=== PATIENT | female | born 1935 | race Caucasian/White ===

== ENCOUNTER 2017-12-03 11:43 | Inpatient (IN) ==
--- NOTE | 2017-12-03 15:59 | Internal Med History&Physical ---
Date of Encounter: 12/03/17 Time of Encounter: 15:57 Assessment and Plan (1) Hip fracture Current visit: No Status: Acute Consult PT\OT to eval and treat. Follow up with ortho as scheduled continue current pain medication. Qualifiers: Encounter type: initial encounter Fracture type: closed Laterality: right Qualified Code(s): S72.001A - Fracture of unspecified part of neck of right femur, initial encounter for closed fracture (2) HTN (hypertension) Current visit: No Status: Chronic Controlled with current medication. Monitor blood pressure. Qualifiers: Hypertension type: essential hypertension Qualified Code(s): I10 - Essential (primary) hypertension (3) Virvv-il-xpwkbrj kidney injury Current visit: No Status: Resolved Monitor labs. Avoid nephrotoxic agents. Qualifiers: Acute renal failure type: unspecified Chronic kidney disease stage: unspecified stage Qualified Code(s): N17.9 - Acute kidney failure, unspecified ; N18.9 - Chronic kidney disease, unspecified Internal Medicine - H&P: HPI Admitted From: Intrahospital Transfer Plans for Post Hospital Care: Home History of present illness: Ms. Long is a 82 year old female admitted to inpatient rehab status post right hip fracture from [facility]. Past medical history includes hypertension, IBS, malignancy, Gerd, hyperlipidemia, CKD. States pain is controlled with current pain medication. Denies fever, chills, nausea, vomiting or diarrhea. States bowels moved today. Having to take Imodium often on due to IBS. Past Med Surg Social Fam HX - Past Medical History Medical history: cancer, GERD, hypertension, renal disease Psychiatric history: no psych history - Past Surgical History Surgical History: cholecystectomy, hysterectomy - Social History Smoking Status: Never smoker Alcohol use: none Drug use: none - Family History Mother Living Status: Hx Family Cancer: Yes (lung ca) Hx Family Endocrine Disorder: Yes (dm) Father Living Status: Hx Family Cardiac Disorders: Yes Internal Medicine - H&P: Meds Amlodipine Besylate 10 mg PO DAILY 11/29/17 [History] Aspirin [Lo-Dose Aspirin EC] 81 mg PO DAILY 11/29/17 [History] Ergocalciferol (VITAMIN D2) [Vitamin D2] 50,000 unit PO QWEEK 11/29/17 [History] Escitalopram [Lexapro] 10 mg PO HS 11/29/17 [History] Esomeprazole Magnesium [Nexium] 40 mg PO DAILY 11/29/17 [History] Fenofibrate Nanocrystallized [Triglide] 160 mg PO DAILY 11/29/17 [History] Metoprolol Succinate [Toprol Xl] 50 mg PO BID 11/29/17 [History] Valsartan 160 mg PO BID 11/29/17 [History] Loperamide [Imodium] 2 mg PO DAILY 11/30/17 [History] Aspirin Enteric Coated [Aspirin EC] 325 mg PO BID 20 Days #20 tablet. [Rx] HYDROcodone/Acet 10/325 mg [[place] 10-325 mg] 1 each PO Q4H PRN 5 Days #20 tablet 12/03/17 [Rx] 3 Allergy/AdvReac Type Severity Reaction Status Date / Time Oxycodone [From Percocet] Allergy Hallucinati Verified 11/29/17 21:04 ng All Systems PM: A 10-system review of systems was performed and is negative for pertinent findings except as documented above in the HPI. - Constitutional Constitutional: no chills, no fever(s), no night sweats - EENT Eyes: no change in vision, no discharge, no pain, no photophobia Ears: no ear discharge, no ear pain, no tinnitus Nose, mouth and throat: no dysphagia, no nasal discharge, no neck pain, no sore throat - Cardiovascular Cardiovascular ROS IM: no chest pain, no diaphoresis, no dyspnea, no lightheadedness, no palpitations, no syncope - Respiratory Respiratory: no cough, no dyspnea, no wheezing, no excessive phlegm production - Gastrointestinal Gastrointestinal: no abdominal pain, no diarrhea, no hematemesis, no hematochezia, no melena, no nausea, no vomiting - Genitourinary Genitourinary: no change in urinary stream, no dysuria, no flank pain, no hematuria - Musculoskeletal Musculoskeletal ROS IM: no numbness, no tingling - Integumentary Integumentary IM: no rash, no unusual bruising - Neurological Neurological ROS: no confusion, no convulsions, no focal weakness, no numbness, no tingling, no tremor(s) - Hematologic/Lymphatic Hematologic/Lymphatic: no easy bruising - Head Head exam: Present: atraumatic, normocephalic - Eye Eye exam: Present: PERRL, conjuntiva pink, sclera anicteric Pupils: Present: PERRL - Neck Neck exam general surgery: Present: supple, trachea midline. Absent: lymphadenopathy - Respiratory Respiratory exam: Present: CTAB. Absent: accessory muscle use, rales, rhonchi, wheezes - Cardiovascular Cardiovascular exam: Present: RRR, +S1, +S2. Absent: diastolic murmur, gallop, rubs, systolic murmur - GI/Abdominal GI/Abdominal exam: Present: normal bowel sounds, soft, no peritoneal signs. Absent: distended, tenderness - Extremities Exam Extremities exam: Present: warm, radial pulses palpable and symmetrical. Absent : calf tenderness, cyanotic, pedal edema - Incison Comments: Right hip incision dressing dry and intact. Small amount of edema surrounding surgical site. Slight ecchymosis - Neurological Exam Neurological exam: Present: CN II-XII intact, oriented X3, no focal deficits. Absent: pronater drift, facial droop, speech deficit - Skin Skin exam: Present: dry, intact
[2017-12-03] MEDS: *HR* HYDROcodone/Acet 10/325 mg TABLET PO PRN (20:00)
[2017-12-03] MEDS: Metoprolol XL (24 HR) Succ 50 MG TAB.ER.24H PO SCH (20:01)
[2017-12-03] MEDS: Valsartan 160 MG TABLET PO SCH (20:01)
[2017-12-04 05:45] LABS: Basophils # 0.1 K/mcL (0.0-0.2); Basophils % 0.5 %; Eosinophils # 0.8 K/mcL (0.0-0.6); Eosinophils % 7.5 %; Hematocrit 26.2 % (35.3-44.9); Hemoglobin 8.4 g/dL (11.5-15.4); Immature Granulocytes % 0.6 % (0-4); Lymphocytes % 54.4 %; Mean Corpuscular HGB Conc 32.1 g/dL (31.6-35.5); Mean Corpuscular Hemoglobin 28.4 pg (28.0-33.3); Mean Corpuscular Volume 88.5 fL (83.0-100.0); Mean Platelet Volume 9.2 fL (9.4-12.4); Monocytes # 0.7 K/mcL (0.0-1.3); Neutrophils # 3.4 K/mcL (1.6-8.9); Platelet Count 196 K/mcL (140-400); Red Blood Count 2.96 M/mcL (3.82-4.97); Red Cell Distribution Width 13.2 % (11.5-14.5)
[2017-12-04 05:58] LABS: BUN/Creatinine Ratio 38 (6-26); Blood Urea Nitrogen 38 mg/dL (8-23); Calcium 9.1 mg/dL (8.6-10.3); Carbon Dioxide 30 mEq/L (23-29); Chloride 105 mEq/L (98-107); Glucose 116 mg/dL (70-105); Osmolality,Calculated 302 (280-300); Potassium 4.6 mEq/L (3.5-5.1); Sodium 141 mEq/L (136-145); eGFR For African Americans > 60 (> 60); eGFR For Non-African Americans 53 (> 60)
[2017-12-04] MEDS: Fenofibrate 54 MG TABLET PO SCH (07:46)
[2017-12-04] MEDS: Aspirin Enteric Coated 81 MG Tablet PO SCH (07:46)
[2017-12-04] MEDS: Metoprolol XL (24 HR) Succ 50 MG TAB.ER.24H PO SCH ×2 (07:46→20:34)
[2017-12-04] MEDS: Valsartan 160 MG TABLET PO SCH ×2 (07:46→20:34)
[2017-12-04] MEDS: amLODIPine 5 MG TABLET PO SCH (07:46)
[2017-12-04] MEDS: *HR* HYDROcodone/Acet 10/325 mg TABLET PO PRN ×2 (07:46→20:35)
--- NOTE | 2017-12-04 12:02 | Internal Med Progress Note ---
Date of Encounter: 12/04/17 Time of Encounter: 12:00 - Assessment and plan (1) Hip fracture Current Visit: Yes Status: Acute Assessment and plan: PT\OT to eval and treat. Continue current pain medications as they are effective for controlling pain. Follow up with ortho as scheduled. Qualifiers: Encounter type: sequela Fracture type: closed Laterality: right Qualified Code(s): S72.001S - Fracture of unspecified part of neck of right femur, sequela (2) HTN (hypertension) Current Visit: Yes Status: Chronic Assessment and plan: Controlled with current medication. Will monitor blood pressure Qualifiers: Hypertension type: essential hypertension Qualified Code(s): I10 - Essential (primary) hypertension (3) Jtrsn-rh-mvtslsp kidney injury Current Visit: Yes Status: Resolved Assessment and plan: Creatinine 1.0. Improved. Will monitor labs. Avoid nephrotoxic agents. Qualifiers: Acute renal failure type: unspecified Chronic kidney disease stage: unspecified stage Qualified Code(s): N17.9 - Acute kidney failure, unspecified ; N18.9 - Chronic kidney disease, unspecified - Time Spent With Patient less than 15 minutes - Subjective Interval history: Patient sitting up in chair. States pain is controlled with current medication. Denies fever, chills, nausea vomiting or diarrhea. States last bowel movement was today. Maintaining appetite and hydration. - Constitutional Vitals: Temp Pulse Resp BP Pulse Ox 98.1 F 57 16 108/70 93 12/04/17 11:00 12/04/17 11:00 12/04/17 11:00 12/04/17 11:00 12/04/17 11:00 General appearance: Present: cooperative, A&O X 3, pleasant, no acute distress, answers questions appropriately - Head Head exam: Present: atraumatic, normocephalic - Eye Eye exam: Present: PERRL, conjuntiva pink, sclera anicteric Pupils: Present: PERRL - Neck Neck exam general surgery: Present: supple, trachea midline. Absent: lymphadenopathy - Respiratory Respiratory exam: Present: CTAB. Absent: accessory muscle use, rales, rhonchi, wheezes - Cardiovascular Cardiovascular exam: Present: RRR, +S1, +S2. Absent: diastolic murmur, gallop, rubs, systolic murmur - GI/Abdominal GI/Abdominal exam: Present: normal bowel sounds, soft, no peritoneal signs. Absent: distended, tenderness - Extremities Exam Extremities exam: Present: warm, radial pulses palpable and symmetrical. Absent : calf tenderness, cyanotic, pedal edema - Incison Comments: Right hip incision dressing dry and intact. No drainage. Slight amount of edema surrounding incision. - Neurological Exam Neurological exam: Present: CN II-XII intact, oriented X3, no focal deficits. Absent: pronater drift, facial droop, speech deficit - Skin Skin exam: Present: dry, intact Internal Medicine: Result - Labs CBC & Chem 7: 12/04/17 05:35 12/04/17 05:35 Labs: Short CBC 12/04/17 Range/Units 05:35 WBC 11.0 (4.3-11.1) K/mcL Hgb 8.4 L (11.5-15.4) g/dL Hct 26.2 L (35.3-44.9) % Plt Count 196 (140-400) K/mcL Neutrophils # 3.4 (1.6-8.9) K/mcL BMP 12/04/17 05:35 Sodium 141 Potassium 4.6 Chloride 105 Carbon Dioxide 30 H BUN 38 H Creatinine 1.00 Glucose 116 H Calcium 9.1 Consult Discharge Plan - Plan Referrals: Guanako Lara MD [Primary Care Provider] -
[2017-12-04] MEDS: *HR* Heparin 5,000 UNIT/ML VIAL SQ SCH (21:53)
[2017-12-05] MEDS: *HR* HYDROcodone/Acet 10/325 mg TABLET PO PRN ×4 (05:12→20:55)
[2017-12-05] MEDS: *HR* Heparin 5,000 UNIT/ML VIAL SQ SCH ×2 (05:13→18:18)
[2017-12-05] MEDS: Fenofibrate 54 MG TABLET PO SCH (08:51)
[2017-12-05] MEDS: Valsartan 160 MG TABLET PO SCH ×2 (08:51→20:51)
[2017-12-05] MEDS: Aspirin Enteric Coated 81 MG Tablet PO SCH (08:51)
[2017-12-05] MEDS: amLODIPine 5 MG TABLET PO SCH (08:51)
[2017-12-05] MEDS: Metoprolol XL (24 HR) Succ 50 MG TAB.ER.24H PO SCH ×2 (08:51→20:51)
--- NOTE | 2017-12-05 11:36 | Internal Med Progress Note ---
Date of Encounter: 12/05/17 Time of Encounter: 11:33 - Assessment and plan (1) Hip fracture Current Visit: Yes Status: Acute Assessment and plan: PT\OT to eval and treat. Continue current pain medications as they are effective for controlling pain. Follow up with ortho as scheduled. Qualifiers: Encounter type: sequela Fracture type: closed Laterality: right Qualified Code(s): S72.001S - Fracture of unspecified part of neck of right femur, sequela (2) HTN (hypertension) Current Visit: Yes Status: Chronic Assessment and plan: Controlled with current medication. Will monitor blood pressure Qualifiers: Hypertension type: essential hypertension Qualified Code(s): I10 - Essential (primary) hypertension (3) Entoc-lm-ramclhm kidney injury Current Visit: Yes Status: Resolved Assessment and plan: Creatinine 1.0. Improved. Will monitor labs. Avoid nephrotoxic agents. Qualifiers: Acute renal failure type: unspecified Chronic kidney disease stage: unspecified stage Qualified Code(s): N17.9 - Acute kidney failure, unspecified ; N18.9 - Chronic kidney disease, unspecified - Time Spent With Patient less than 15 minutes - Subjective Interval history: Patient sitting up in chair. states increased right hip pain with PT today, has not been asking for pain meds. reminded patient to request prn pain meds prior to therapy. Denies fever, chills, nausea vomiting or diarrhea. States last bowel movement was today. Maintaining appetite and hydration. - Constitutional Vitals: Temp Pulse Resp BP Pulse Ox 97.9 F 60 16 123/84 93 12/05/17 07:00 12/05/17 07:00 12/05/17 07:00 12/05/17 07:00 12/05/17 07:00 General appearance: Present: cooperative, A&O X 3, pleasant, no acute distress, answers questions appropriately - Head Head exam: Present: atraumatic, normocephalic - Eye Eye exam: Present: PERRL, conjuntiva pink, sclera anicteric Pupils: Present: PERRL - Neck Neck exam general surgery: Present: supple, trachea midline. Absent: lymphadenopathy - Respiratory Respiratory exam: Present: CTAB. Absent: accessory muscle use, rales, rhonchi, wheezes - Cardiovascular Cardiovascular exam: Present: RRR, +S1, +S2. Absent: diastolic murmur, gallop, rubs, systolic murmur - GI/Abdominal GI/Abdominal exam: Present: normal bowel sounds, soft, no peritoneal signs. Absent: distended, tenderness - Extremities Exam Extremities exam: Present: warm, radial pulses palpable and symmetrical. Absent : calf tenderness, cyanotic, pedal edema - Incison Comments: right hip incision drsg dry and intact. no drainage or signs of infection. - Neurological Exam Neurological exam: Present: CN II-XII intact, oriented X3, no focal deficits. Absent: pronater drift, facial droop, speech deficit - Skin Skin exam: Present: dry, intact Internal Medicine: Result - Labs CBC & Chem 7: 12/04/17 05:35 12/04/17 05:35 Consult Discharge Plan - Plan Referrals: Guanako Lara MD [Primary Care Provider] -
[2017-12-06 05:27] LABS: Basophils # 0.1 K/mcL (0.0-0.2); Basophils % 0.6 %; Eosinophils # 0.9 K/mcL (0.0-0.6); Eosinophils % 8.6 %; Hematocrit 24.4 % (35.3-44.9); Hemoglobin 7.9 g/dL (11.5-15.4); Immature Granulocytes % 0.7 % (0-4); Lymphocytes # 5.5 K/mcL (0.6-4.6); Lymphocytes % 54.2 %; Mean Corpuscular HGB Conc 32.4 g/dL (31.6-35.5); Mean Corpuscular Hemoglobin 28.8 pg (28.0-33.3); Mean Corpuscular Volume 89.1 fL (83.0-100.0); Monocytes # 0.6 K/mcL (0.0-1.3); Monocytes % 6.2 %; Platelet Count 216 K/mcL (140-400); Red Blood Count 2.74 M/mcL (3.82-4.97); Red Cell Distribution Width 13.5 % (11.5-14.5); Segmented Neutrophils % 29.7 %
[2017-12-06 05:44] LABS: Calcium 9.1 mg/dL (8.6-10.3); Potassium 4.2 mEq/L (3.5-5.1)
[2017-12-06] MEDS: *HR* Heparin 5,000 UNIT/ML VIAL SQ SCH ×2 (06:08→17:27)
[2017-12-06] MEDS: *HR* HYDROcodone/Acet 10/325 mg TABLET PO PRN ×4 (06:09→21:25)
[2017-12-06] MEDS: Valsartan 160 MG TABLET PO SCH ×2 (08:21→21:25)
[2017-12-06] MEDS: Metoprolol XL (24 HR) Succ 50 MG TAB.ER.24H PO SCH ×2 (08:21→21:25)
[2017-12-06] MEDS: Aspirin Enteric Coated 81 MG Tablet PO SCH (08:21)
[2017-12-06] MEDS: Fenofibrate 54 MG TABLET PO SCH (08:21)
[2017-12-06] MEDS: amLODIPine 5 MG TABLET PO SCH (08:21)
--- NOTE | 2017-12-06 10:48 | Internal Med Progress Note ---
Date of Encounter: 12/06/17 Time of Encounter: 10:45 - Assessment and plan (1) Hip fracture Current Visit: Yes Status: Acute Assessment and plan: No acute issues. Patient continues to progress well with physical therapy. Surgical incision appears healthy, but noted moderate amount of ecchymosis and edema noted. Patient's hemoglobin today has dropped from 8.4-7.9, but patient remains asymptomatic with vital signs stable and no complaints of dizziness, palpitations or dyspnea. We will continue with current plan of care. We will recheck hemoglobin in the morning Qualifiers: Encounter type: sequela Fracture type: closed Laterality: right Qualified Code(s): S72.001S - Fracture of unspecified part of neck of right femur, sequela (2) HTN (hypertension) Current Visit: Yes Status: Chronic Assessment and plan: Vital signs stable. We will continue with current medications. Qualifiers: Hypertension type: essential hypertension Qualified Code(s): I10 - Essential (primary) hypertension (3) Igrqp-kj-utlfnbh kidney injury Current Visit: Yes Status: Chronic Assessment and plan: No acute issues. Patient's creatinine this morning is 1.17. We will continue with current medications and continue to monitor labs. Qualifiers: Acute renal failure type: unspecified Chronic kidney disease stage: unspecified stage Qualified Code(s): N17.9 - Acute kidney failure, unspecified ; N18.9 - Chronic kidney disease, unspecified - Time Spent With Patient less than 15 minutes - Subjective Interval history: Patient appears relaxed and currently denies any discomforts. Patient states that her current pain medications have been effective. Patient states she believes that physical therapy has been progressing well. Patient also denies any palpitations or dizziness. Today's hemoglobin has dropped to 7.9, with patient appearing asymptomatic. - Constitutional Vitals: Temp Pulse Resp BP Pulse Ox 97.9 F 60 16 126/68 95 12/06/17 07:45 12/06/17 07:45 12/06/17 07:45 12/06/17 07:45 12/06/17 07:45 General appearance: Present: cooperative, A&O X 3, pleasant, no acute distress, answers questions appropriately - Head Head exam: Present: atraumatic, normocephalic - Eye Eye exam: Present: PERRL, conjuntiva pink, sclera anicteric Pupils: Present: PERRL - Neck Neck exam general surgery: Present: supple, trachea midline. Absent: lymphadenopathy - Respiratory Respiratory exam: Present: CTAB. Absent: accessory muscle use, rales, rhonchi, wheezes - Cardiovascular Cardiovascular exam: Present: RRR, +S1, +S2. Absent: diastolic murmur, gallop, rubs, systolic murmur - GI/Abdominal GI/Abdominal exam: Present: normal bowel sounds, soft, no peritoneal signs. Absent: distended, tenderness - Extremities Exam Extremities exam: Present: warm, radial pulses palpable and symmetrical. Absent : calf tenderness, cyanotic, pedal edema Additional comments: Right hip surgical incision appears dry and intact with initial surgical dressing in place. Iron amount of ecchymosis surrounding surgical area and right hip with moderate amount of edema. - Neurological Exam Neurological exam: Present: CN II-XII intact, oriented X3, no focal deficits. Absent: pronater drift, facial droop, speech deficit - Skin Skin exam: Present: dry, intact Internal Medicine: Result - Labs CBC & Chem 7: 12/06/17 05:00 12/06/17 05:00 Labs: Short CBC 12/06/17 Range/Units 05:00 WBC 10.1 (4.3-11.1) K/mcL Hgb 7.9 L (11.5-15.4) g/dL Hct 24.4 L (35.3-44.9) % Plt Count 216 (140-400) K/mcL Neutrophils # 3.0 (1.6-8.9) K/mcL BMP 12/06/17 05:00 Sodium 136 Potassium 4.2 Chloride 103 Carbon Dioxide 28 BUN 44 H Creatinine 1.17 Glucose 110 H Calcium 9.1 Consult Discharge Plan - Plan Referrals: Guanako Lara MD [Primary Care Provider] -
[2017-12-07] MEDS: *HR* Heparin 5,000 UNIT/ML VIAL SQ SCH ×2 (06:24→16:29)
[2017-12-07] MEDS: *HR* HYDROcodone/Acet 10/325 mg TABLET PO PRN ×4 (06:25→20:42)
[2017-12-07 07:40] LABS: Basophils # 0.1 K/mcL (0.0-0.2); Basophils % 0.6 %; Eosinophils # 0.9 K/mcL (0.0-0.6); Eosinophils % 8.4 %; Hematocrit 24.8 % (35.3-44.9); Hemoglobin 7.9 g/dL (11.5-15.4); Immature Granulocytes % 0.7 % (0-4); Lymphocytes # 6.1 K/mcL (0.6-4.6); Lymphocytes % 57.4 %; Mean Corpuscular HGB Conc 31.9 g/dL (31.6-35.5); Mean Corpuscular Hemoglobin 28.7 pg (28.0-33.3); Mean Corpuscular Volume 90.2 fL (83.0-100.0); Mean Platelet Volume 9.2 fL (9.4-12.4); Monocytes # 0.8 K/mcL (0.0-1.3); Monocytes % 7.9 %; Neutrophils # 2.7 K/mcL (1.6-8.9); Nucleated Red Blood Cells 0.2 /100 WBC (0); Platelet Count 239 K/mcL (140-400); Red Blood Count 2.75 M/mcL (3.82-4.97); Red Cell Distribution Width 13.7 % (11.5-14.5)
[2017-12-07] MEDS: Fenofibrate 54 MG TABLET PO SCH (08:38)
[2017-12-07] MEDS: Aspirin Enteric Coated 81 MG Tablet PO SCH (08:39)
[2017-12-07] MEDS: amLODIPine 5 MG TABLET PO SCH (08:39)
[2017-12-07] MEDS: Valsartan 160 MG TABLET PO SCH ×2 (08:39→20:41)
[2017-12-07] MEDS: Metoprolol XL (24 HR) Succ 50 MG TAB.ER.24H PO SCH ×2 (08:39→20:41)
--- NOTE | 2017-12-07 10:28 | Internal Med Progress Note ---
Date of Encounter: 12/07/17 Time of Encounter: 10:26 - Assessment and plan (1) Hip fracture Current Visit: Yes Status: Acute Assessment and plan: No acute issues. Patient continues to progress well with physical therapy. Surgical incision appears healthy, but noted moderate amount of ecchymosis and edema noted. Patient's hemoglobin today has dropped from 8.4-7.9. Today's atient remains asymptomatic with vital signs stable and no complaints of dizziness, palpitations or dyspnea. We will continue with current plan of care. We will recheck hemoglobin in two days. Qualifiers: Encounter type: sequela Fracture type: closed Laterality: right Qualified Code(s): S72.001S - Fracture of unspecified part of neck of right femur, sequela (2) HTN (hypertension) Current Visit: Yes Status: Chronic Assessment and plan: Vital signs stable. We will continue with current medications. Qualifiers: Hypertension type: essential hypertension Qualified Code(s): I10 - Essential (primary) hypertension (3) Gjaff-nj-xbytudy kidney injury Current Visit: Yes Status: Chronic Assessment and plan: No acute issues. Patient's creatinine this morning is 1.17. We will continue with current medications and continue to monitor labs. Qualifiers: Acute renal failure type: unspecified Chronic kidney disease stage: unspecified stage Qualified Code(s): N17.9 - Acute kidney failure, unspecified ; N18.9 - Chronic kidney disease, unspecified - Time Spent With Patient less than 15 minutes - Subjective Interval history: Patient appears relaxed and currently denies any discomforts. Patient states that her current pain medications have been effective. Patient states she believes that physical therapy has been progressing well. Patient also denies any palpitations or dizziness. Today's hemoglobin has remained stable at 7.9, with patient appearing asymptomatic. - Constitutional Vitals: Temp Pulse Resp BP Pulse Ox 98.6 F 55 18 106/69 91 12/07/17 07:04 12/07/17 07:04 12/07/17 07:04 12/07/17 07:04 12/07/17 07:04 General appearance: Present: cooperative, A&O X 3, pleasant, no acute distress, answers questions appropriately - Head Head exam: Present: atraumatic, normocephalic - Eye Eye exam: Present: PERRL, conjuntiva pink, sclera anicteric Pupils: Present: PERRL - Neck Neck exam general surgery: Present: supple, trachea midline. Absent: lymphadenopathy - Respiratory Respiratory exam: Present: CTAB. Absent: accessory muscle use, rales, rhonchi, wheezes - Cardiovascular Cardiovascular exam: Present: RRR, +S1, +S2. Absent: diastolic murmur, gallop, rubs, systolic murmur - GI/Abdominal GI/Abdominal exam: Present: normal bowel sounds, soft, no peritoneal signs. Absent: distended, tenderness - Extremities Exam Extremities exam: Present: warm, radial pulses palpable and symmetrical. Absent : calf tenderness, cyanotic, pedal edema Additional comments: Right hip surgical incision with surgical dressing dry and intact. Moderate amount of ecchymosis noted around the site with moderate edema to the hip. - Neurological Exam Neurological exam: Present: CN II-XII intact, oriented X3, no focal deficits. Absent: pronater drift, facial droop, speech deficit - Skin Skin exam: Present: dry, intact Internal Medicine: Result - Labs CBC & Chem 7: 12/07/17 06:05 12/06/17 05:00 Labs: Short CBC 12/07/17 Range/Units 06:05 WBC 10.7 (4.3-11.1) K/mcL Hgb 7.9 L (11.5-15.4) g/dL Hct 24.8 L (35.3-44.9) % Plt Count 239 (140-400) K/mcL Neutrophils # 2.7 (1.6-8.9) K/mcL Consult Discharge Plan - Plan Referrals: Guanako Lara MD [Primary Care Provider] -
[2017-12-08] MEDS: *HR* Heparin 5,000 UNIT/ML VIAL SQ SCH ×2 (05:34→16:32)
[2017-12-08] MEDS: *HR* HYDROcodone/Acet 10/325 mg TABLET PO PRN ×4 (05:35→20:59)
[2017-12-08] MEDS: Metoprolol XL (24 HR) Succ 50 MG TAB.ER.24H PO SCH ×2 (08:24→20:59)
[2017-12-08] MEDS: amLODIPine 5 MG TABLET PO SCH (08:24)
[2017-12-08] MEDS: Fenofibrate 54 MG TABLET PO SCH (08:24)
[2017-12-08] MEDS: Aspirin Enteric Coated 81 MG Tablet PO SCH (08:24)
[2017-12-08] MEDS: Valsartan 160 MG TABLET PO SCH ×2 (08:24→20:59)
--- NOTE | 2017-12-08 09:36 | Internal Med Progress Note ---
Date of Encounter: 12/08/17 Time of Encounter: 09:34 - Assessment and plan (1) Anemia Current Visit: Yes Status: Acute Assessment and plan: anemia , most likely iron def . supplement Iron if already not on it labs as needed Qualifiers: Anemia type: unspecified type Qualified Code(s): D64.9 - Anemia, unspecified (2) Hip fracture Current Visit: Yes Status: Acute Assessment and plan: stable getting rehab some pain but controlled on present meds Qualifiers: Encounter type: sequela Fracture type: closed Laterality: right Qualified Code(s): S72.001S - Fracture of unspecified part of neck of right femur, sequela (3) HTN (hypertension) Current Visit: Yes Status: Chronic Assessment and plan: stable systolic is some what on the lower end could be more harmful if she falls will decrease her Norvasc to 5 mg and followup Qualifiers: Hypertension type: essential hypertension Qualified Code(s): I10 - Essential (primary) hypertension (4) Uyohr-ov-kwxffjp kidney injury Current Visit: Yes Status: Chronic Assessment and plan: improving and resolving continue present treatment increase fluid intake Qualifiers: Acute renal failure type: unspecified Chronic kidney disease stage: unspecified stage Qualified Code(s): N17.9 - Acute kidney failure, unspecified ; N18.9 - Chronic kidney disease, unspecified - Subjective Interval history: Seen as followup cross coverage no acute issues except for pain on the surgical site She is actively participating in her rehab and denies any chest pain SOB nausea vomiting or any other complains except for pain right side hip - Constitutional Vitals: Temp Pulse Resp BP Pulse Ox 97.9 F 60 18 102/64 96 12/08/17 07:12 12/08/17 07:12 12/08/17 07:12 12/08/17 07:12 12/08/17 07:12 General appearance: Present: cooperative, A&O X 3, pleasant, no acute distress, answers questions appropriately - Head Head exam: Present: atraumatic - Eye Eye exam: Present: EOMI, PERRL. Absent: scleral icterus, conjuntiva pink, sclera anicteric - Neck Neck exam general surgery: Present: full ROM, supple. Absent: tenderness, nuchal rigidity - Respiratory Respiratory exam: Present: CTAB. Absent: chest wall tenderness, decreased breath sounds, respiratory distress, rhonchi, stridor, wheezes, tachypnea - Cardiovascular Cardiovascular exam: Present: RRR, +S1, +S2. Absent: gallop, irregular rhythm, JVD, systolic murmur, tachycardia - GI/Abdominal GI/Abdominal exam: Present: normal bowel sounds, soft. Absent: distended, guarding, hyperactive bowel sounds, rebound, rigid, splenomegaly - Extremities Exam Extremities exam: Present: pedal edema, warm. Absent: calf tenderness, full ROM Additional comments: right side mild + left normal no edema noted - Incison Incision: Present: clean and dry, intact. Absent: draining, red, swollen, erythema, open - Neurological Exam Neurological exam: Present: alert, CN II-XII intact, oriented X3, no focal deficits. Absent: facial droop, speech deficit Internal Medicine: Result - Labs CBC & Chem 7: 12/07/17 06:05 12/06/17 05:00 Consult Discharge Plan - Plan Referrals: Guanako Lara MD [Primary Care Provider] -
[2017-12-08] MEDS ORDERED: amLODIPine 5 MG TABLET PO SCH (09:43)
[2017-12-09] MEDS: *HR* Heparin 5,000 UNIT/ML VIAL SQ SCH ×2 (05:33→17:37)
[2017-12-09] MEDS: *HR* HYDROcodone/Acet 10/325 mg TABLET PO PRN ×3 (05:33→20:56)
[2017-12-09 05:53] LABS: Thyroid Stimulating Hormone 2.615 mcIU/mL (0.340-5.600)
[2017-12-09] MEDS: Aspirin Enteric Coated 81 MG Tablet PO SCH (07:49)
[2017-12-09] MEDS: Fenofibrate 54 MG TABLET PO SCH (07:50)
[2017-12-09] MEDS: Metoprolol XL (24 HR) Succ 50 MG TAB.ER.24H PO SCH ×2 (07:50→20:55)
[2017-12-09] MEDS: amLODIPine 5 MG TABLET PO SCH (07:50)
[2017-12-09] MEDS: Valsartan 160 MG TABLET PO SCH ×2 (07:50→20:55)
--- NOTE | 2017-12-09 09:12 | Internal Med Progress Note ---
Date of Encounter: 12/09/17 Time of Encounter: 09:09 - Assessment and plan (1) Anemia Current Visit: Yes Status: Acute Assessment and plan: TSH is wihtin normal range other labs pending . On iron supplement now Qualifiers: Anemia type: unspecified type Qualified Code(s): D64.9 - Anemia, unspecified (2) Hip fracture Current Visit: Yes Status: Acute Assessment and plan: pain better controlled stable and improving Qualifiers: Encounter type: sequela Fracture type: closed Laterality: right Qualified Code(s): S72.001S - Fracture of unspecified part of neck of right femur, sequela (3) HTN (hypertension) Current Visit: Yes Status: Chronic Assessment and plan: BP is better today meds were adjusted. Will continue to monitor Qualifiers: Hypertension type: essential hypertension Qualified Code(s): I10 - Essential (primary) hypertension (4) Iotwe-ni-sfuuqmo kidney injury Current Visit: Yes Status: Chronic Assessment and plan: stable labs tomorrow Qualifiers: Acute renal failure type: unspecified Chronic kidney disease stage: unspecified stage Qualified Code(s): N17.9 - Acute kidney failure, unspecified ; N18.9 - Chronic kidney disease, unspecified - Subjective Interval history: Seen as followup cross coverage no acute issues pain seems to be better today . she states that her blood pressure was low however records shows otherwise no other complains no fever or chills . up in chair pain better control - Constitutional Vitals: Temp Pulse Resp BP Pulse Ox 98.2 F 58 16 118/56 93 12/09/17 07:00 12/09/17 07:00 12/09/17 07:00 12/09/17 07:00 12/09/17 07:00 General appearance: Present: cooperative, A&O X 3, pleasant, no acute distress, answers questions appropriately - Head Head exam: Present: atraumatic - Neck Neck exam general surgery: Present: full ROM, supple. Absent: tenderness, nuchal rigidity - Respiratory Respiratory exam: Present: CTAB. Absent: accessory muscle use, chest wall tenderness, rales, respiratory distress, rhonchi, stridor, wheezes, tachypnea - Cardiovascular Cardiovascular exam: Present: RRR, +S1, +S2. Absent: gallop, irregular rhythm, JVD, systolic murmur, tachycardia - GI/Abdominal GI/Abdominal exam: Present: normal bowel sounds, soft. Absent: guarding, rebound, rigid, splenomegaly, tenderness, no peritoneal signs - Extremities Exam Extremities exam: Present: warm. Absent: pedal edema, tenderness - Neurological Exam Neurological exam: Present: CN II-XII intact, oriented X3, reflexes normal, strengths equal and symetr throughout. Absent: facial droop, speech deficit Internal Medicine: Result - Labs CBC & Chem 7: 12/07/17 06:05 12/06/17 05:00 Consult Discharge Plan - Plan Referrals: Guanako Lara MD [Primary Care Provider] -
[2017-12-10] MEDS: *HR* Heparin 5,000 UNIT/ML VIAL SQ SCH ×2 (05:24→16:56)
[2017-12-10] MEDS: Fenofibrate 54 MG TABLET PO SCH (08:23)
[2017-12-10] MEDS: Metoprolol XL (24 HR) Succ 50 MG TAB.ER.24H PO SCH ×2 (08:24→21:01)
[2017-12-10] MEDS: Aspirin Enteric Coated 81 MG Tablet PO SCH (08:24)
[2017-12-10] MEDS: Valsartan 160 MG TABLET PO SCH ×2 (08:24→21:01)
[2017-12-10] MEDS: amLODIPine 5 MG TABLET PO SCH (08:24)
--- NOTE | 2017-12-10 09:16 | Internal Med Progress Note ---
Date of Encounter: 12/10/17 Time of Encounter: 09:14 - Assessment and plan (1) Anemia Current Visit: Yes Status: Acute Assessment and plan: Iron def anemia She has been started on Iron supplement stable no new change Qualifiers: Anemia type: unspecified type Qualified Code(s): D64.9 - Anemia, unspecified (2) Hip fracture Current Visit: Yes Status: Acute Assessment and plan: Stable , pain is well controlled Qualifiers: Encounter type: sequela Fracture type: closed Laterality: right Qualified Code(s): S72.001S - Fracture of unspecified part of neck of right femur, sequela (3) HTN (hypertension) Current Visit: Yes Status: Chronic Assessment and plan: stable will adjust his meds further and followup. Norvasc stopped continued Valsartan and beta blockers as beofre and watch if BP starts going up then small dose of Norvasc could be added back again . Qualifiers: Hypertension type: essential hypertension Qualified Code(s): I10 - Essential (primary) hypertension (4) Hnwkz-cb-axrifzb kidney injury Current Visit: Yes Status: Resolved Assessment and plan: stable and resolved Qualifiers: Acute renal failure type: unspecified Chronic kidney disease stage: unspecified stage Qualified Code(s): N17.9 - Acute kidney failure, unspecified ; N18.9 - Chronic kidney disease, unspecified - Subjective Interval history: Seen as followup cross coverage no acute issues pain seems to be better today . BP is some what better meds were held especially Diavon . no change will need to adjust meds. Pain is well controlled in her hip no other complains - Constitutional Vitals: Temp Pulse Resp BP Pulse Ox 98.1 F 57 16 121/63 93 12/10/17 07:47 12/10/17 07:47 12/10/17 07:47 12/10/17 07:47 12/10/17 07:47 General appearance: Present: cooperative, A&O X 3, pleasant, no acute distress, answers questions appropriately - Head Head exam: Present: atraumatic - Eye Eye exam: Present: EOMI, PERRL. Absent: scleral icterus, conjuntiva pink, sclera anicteric - Neck Neck exam general surgery: Present: full ROM, supple. Absent: tenderness, nuchal rigidity - Respiratory Respiratory exam: Present: CTAB. Absent: chest wall tenderness, rales, respiratory distress, rhonchi, stridor, wheezes, tachypnea - Cardiovascular Cardiovascular exam: Present: RRR, +S1, +S2. Absent: gallop, irregular rhythm, JVD, systolic murmur, tachycardia - GI/Abdominal GI/Abdominal exam: Present: normal bowel sounds, soft. Absent: guarding, rigid - Extremities Exam Extremities exam: Present: pedal edema Additional comments: right leg otherwise normal left leg - Incison Incision: Present: clean and dry, intact. Absent: draining, red, swollen - Neurological Exam Neurological exam: Present: alert, CN II-XII intact, oriented X3. Absent: no focal deficits, facial droop, speech deficit Internal Medicine: Result - Labs CBC & Chem 7: 12/07/17 06:05 12/06/17 05:00 Consult Discharge Plan - Plan Referrals: Guanako Lara MD [Primary Care Provider] -
[2017-12-10] MEDS: *HR* HYDROcodone/Acet 10/325 mg TABLET PO PRN ×3 (10:34→21:01)
[2017-12-10 10:43] LABS: Basophils # 0.1 K/mcL (0.0-0.2); Basophils % 0.6 %; Eosinophils # 0.8 K/mcL (0.0-0.6); Eosinophils % 8.1 %; Hematocrit 28.3 % (35.3-44.9); Immature Granulocytes % 0.8 % (0-4); Lymphocytes # 4.2 K/mcL (0.6-4.6); Lymphocytes % 44.4 %; Mean Corpuscular HGB Conc 31.8 g/dL (31.6-35.5); Mean Corpuscular Hemoglobin 28.5 pg (28.0-33.3); Mean Corpuscular Volume 89.6 fL (83.0-100.0); Mean Platelet Volume 8.7 fL (9.4-12.4); Monocytes # 0.9 K/mcL (0.0-1.3); Monocytes % 9.5 %; Neutrophils # 3.4 K/mcL (1.6-8.9); Platelet Count 313 K/mcL (140-400); Red Blood Count 3.16 M/mcL (3.82-4.97); Red Cell Distribution Width 14.4 % (11.5-14.5); Segmented Neutrophils % 36.6 %
[2017-12-10 10:46] LABS: Prothrombin Time 10.9 Seconds (9.4-12.1)
[2017-12-10 10:48] LABS: Activated Partial Thrombo Time 29.4 Seconds (26.0-36.0)
[2017-12-10 10:57] LABS: Calcium 9.7 mg/dL (8.6-10.3); Potassium 3.9 mEq/L (3.5-5.1)
[2017-12-11] MEDS: *HR* HYDROcodone/Acet 10/325 mg TABLET PO PRN ×4 (06:44→22:20)
[2017-12-11] MEDS: *HR* Heparin 5,000 UNIT/ML VIAL SQ SCH ×2 (06:44→16:49)
[2017-12-11] MEDS: Valsartan 160 MG TABLET PO SCH ×2 (07:58→21:49)
[2017-12-11] MEDS: Fenofibrate 54 MG TABLET PO SCH (07:58)
[2017-12-11] MEDS: Aspirin Enteric Coated 81 MG Tablet PO SCH (07:58)
[2017-12-11] MEDS: Metoprolol XL (24 HR) Succ 50 MG TAB.ER.24H PO SCH ×2 (07:58→21:49)
--- NOTE | 2017-12-11 09:51 | Internal Med Progress Note ---
Date of Encounter: 12/11/17 Time of Encounter: 09:47 - Assessment and plan (1) Hip fracture Current Visit: Yes Status: Acute Assessment and plan: Doing well. We will make sure that her increased edema is not DVT. Explained to her the fact that her anemia has improved and that iron therapy is not really necessary, she is relieved. Patient has no complaint of chest discomfort, dyspnea, orthopnea, palpitations, nausea or vomiting, constipation or diarrhea, other changes in bowel habits, difficulty with urination, rash or itching, or other new complaints, except as mentioned above. Review of systems is otherwise negative. Qualifiers: Encounter type: sequela Fracture type: closed Laterality: right Qualified Code(s): S72.001S - Fracture of unspecified part of neck of right femur, sequela (2) Anemia Current Visit: Yes Status: Acute Assessment and plan: See above. Qualifiers: Anemia type: unspecified type Qualified Code(s): D64.9 - Anemia, unspecified (3) HTN (hypertension) Current Visit: Yes Status: Chronic Assessment and plan: Clinically stable. We will continue home regimen and follow. Qualifiers: Hypertension type: essential hypertension Qualified Code(s): I10 - Essential (primary) hypertension (4) HLD (hyperlipidemia) Current Visit: No Status: Chronic Assessment and plan: Clinically stable. We will continue home regimen and follow. Qualifiers: Hyperlipidemia type: unspecified Qualified Code(s): E78.5 - Hyperlipidemia , unspecified (5) DVT prophylaxis Current Visit: No Status: Acute Assessment and plan: See above. Do not think she will need injections, at home as she is more than adequately ambulatory. - Subjective Interval history: Patient with much less pain. Is moving bowels and bladder, well. No acute issues and feeling that she is ready for discharge tomorrow. Therapy notes that she has walked 150 feet without difficulty, each time. Admits to increasing ankle edema. Patient has no complaint of chest discomfort, dyspnea, orthopnea, palpitations, nausea or vomiting, constipation or diarrhea, other changes in bowel habits, difficulty with urination, rash or itching, or other new complaints, except as mentioned above. Review of systems is otherwise negative. - Constitutional Vitals: Temp Pulse Resp BP Pulse Ox 98.3 F 56 16 113/58 92 12/11/17 06:00 12/11/17 06:00 12/11/17 06:00 12/11/17 06:00 12/11/17 06:00 General appearance: Present: cooperative, pleasant, answers questions appropriately Exam: Examination: (Except as mentioned above): General: In no apparent distress. Alert and oriented 3. Nondiaphoretic. Head: Atraumatic and normocephalic. Respiratory: No use of accessory muscles. Lungs are clear throughout. Normal airflow. Cardiovascular: Regular rate and rhythm without murmur appreciated. Abdomen: Bowel sounds are normal. No hepatosplenomegaly mass or tenderness appreciated. Obese and therefore difficult to palpate deeply. Extremities: No cyanosis or clubbing but does have slightly increased right ankle edema and calf edema. Skin: Warm and non-diaphoretic with no new lesions noted. Internal Medicine: Result - Labs CBC & Chem 7: 12/10/17 10:33 12/10/17 10:33 Labs: Short CBC 12/10/17 Range/Units 10:33 WBC 9.4 (4.3-11.1) K/mcL Hgb 9.0 L (11.5-15.4) g/dL Hct 28.3 L (35.3-44.9) % Plt Count 313 (140-400) K/mcL Neutrophils # 3.4 (1.6-8.9) K/mcL BMP 12/10/17 10:33 Sodium 138 Potassium 3.9 Chloride 102 Carbon Dioxide 27 BUN 38 H Creatinine 1.19 Glucose 113 H Calcium 9.7 - ABG Interpretation ABG results: PT/INR, D-dimer PT 10.9 Seconds (9.4-12.1) 12/10/17 10:33 Consult Discharge Plan - Plan Referrals: Guanako Lara MD [Primary Care Provider] -
--- NOTE | 2017-12-11 11:58 | Discharge Summary ---
Orders not resulted at time of discharge: Pending orders 12/11/17 09:57 EV venous imaging LE BI Stat 12/17/17 04:00 Activated Partial Thrombo Time [COAG] MO Basic Metabolic Panel MO Complete Blood Count [HEME] MO Prothrombin Time INR [COAG] MO 12/24/17 04:00 Activated Partial Thrombo Time [COAG] MO Basic Metabolic Panel MO Complete Blood Count [HEME] MO Prothrombin Time INR [COAG] MO Date of Encounter: 12/12/17 Time of Encounter: 11:56 - Discharge Diagnosis (1) Hip fracture Priority: Primary Status: Acute Comments: continue outpatient PT. f/u with ortho as scheduled. Qualifiers: Encounter type: sequela Fracture type: closed Laterality: right Qualified Code(s): S72.001S - Fracture of unspecified part of neck of right femur, sequela (2) HTN (hypertension) Priority: Primary Status: Chronic Comments: controlled. continue current meds. f/u with PCP. Qualifiers: Hypertension type: essential hypertension Qualified Code(s): I10 - Essential (primary) hypertension Hospital course: Ms. Long is a 82 year old female discharging to home after right hip fracture. ambulating 150 ft with PT. pain controlled with current pain meds. denies fever, chills, NVD, SOb or chest pain. f/u with ortho and PCP as scheduled. Discharge discussed with: patient, nurse - Time Spent with Patient Total time spent providing and/or coordinating discharge services: Less than 30 minutes - Discharge Medications Home Medications: Amlodipine Besylate 10 mg PO DAILY 11/29/17 [History] Aspirin [Lo-Dose Aspirin EC] 81 mg PO DAILY 11/29/17 [History] Ergocalciferol (VITAMIN D2) [Vitamin D2] 50,000 unit PO QWEEK 11/29/17 [History] Escitalopram [Lexapro] 10 mg PO HS 11/29/17 [History] Esomeprazole Magnesium [Nexium] 40 mg PO DAILY 11/29/17 [History] Fenofibrate Nanocrystallized [Triglide] 160 mg PO DAILY 11/29/17 [History] Metoprolol Succinate [Toprol Xl] 50 mg PO BID 11/29/17 [History] Valsartan 160 mg PO BID 11/29/17 [History] Loperamide [Imodium] 2 mg PO DAILY 11/30/17 [History] Aspirin Enteric Coated [Aspirin EC] 325 mg PO BID 20 Days #20 tablet. [Rx] HYDROcodone/Acet 10/325 mg [[place] 10-325 mg] 1 each PO Q4H PRN 5 Days #20 tablet 12/03/17 [Rx] Ferrous Sulfate 325 mg PO BIDWM tablet 12/11/17 [Rx] Allergies/Adverse Reactions: 3 Allergy/AdvReac Type Severity Reaction Status Date / Time Oxycodone [From Percocet] Allergy Hallucinati Verified 11/29/17 21:04 ng Date of admission: 12/03/17 15:32 Primary care physician: Guanako Lara MD Consults: 12/03/17 16:00 Consult to Occupational Therapy [CONS] Routine Comment: Evaluate, develop and implement POC Reason for Consult: IM nailing right hip Does patient have active BEDREST order?: No Is patient medically & hemodynamically stable?: Yes Patient assessed for mobility or mobilized this visit?: Yes Consult to Physical Therapy [CONS] Routine Comment: Evaluate, develop and implement POC Reason for Consult: right hip--IM nailing Does patient have active BEDREST order?: No Is patient medically & hemodynamically stable?: Yes Patient assessed for mobility or mobilized this visit?: Yes Consult to Recreational Therapy [CONS] Routine Comment: Evaluate, develop and implement POC Consult to Cardiopulmonary Supervisor [CONS] Routine Reason for SW Consult: rehab Discharging clinician: Nilson Le Anticipated date of discharge: 12/12/17 - Constitutional Vitals: Temp Pulse Resp BP Pulse Ox 98.3 F 56 16 113/58 92 12/11/17 06:00 12/11/17 06:00 12/11/17 06:00 12/11/17 06:00 12/11/17 06:00 General appearance: Present: cooperative, A&O X 3, pleasant, answers questions appropriately - Head Head exam: Present: atraumatic, normocephalic - Eye Eye exam: Present: PERRL, conjuntiva pink, sclera anicteric Pupils: Present: PERRL - Neck Neck exam general surgery: Present: supple, trachea midline. Absent: lymphadenopathy - Respiratory Respiratory exam: Present: CTAB. Absent: accessory muscle use, rales, rhonchi, wheezes - Cardiovascular Cardiovascular exam: Present: RRR, +S1, +S2. Absent: diastolic murmur, gallop, rubs, systolic murmur - GI/Abdominal GI/Abdominal exam: Present: normal bowel sounds, soft, no peritoneal signs. Absent: distended, tenderness - Extremities Exam Extremities exam: Present: warm, radial pulses palpable and symmetrical. Absent : calf tenderness, cyanotic, pedal edema - Incison Comments: right hip incision. no drainage or warmth. - Neurological Exam Neurological exam: Present: CN II-XII intact, oriented X3, no focal deficits. Absent: pronater drift, facial droop, speech deficit - Skin Skin exam: Present: dry, intact - Patient Status Disposition: Home, Self-Care Condition: Good Functional capacity at discharge: uses cane/walker Overall status at discharge: patient is progressing back to baseline - Discharge Instructions Instructions: Hip Fracture (GEN) Follow Up With: Km Berrios MD [Partnered Physician] - 12/13/17 10:45 am Guanako Lara MD [Primary Care Provider] - ([facility] primary care they will call with appoint) - Diet and Activity Activity: as per physical therapy Diet: advance to your usual diet
[2017-12-12] MEDS: *HR* Heparin 5,000 UNIT/ML VIAL SQ SCH (06:22)
[2017-12-12] MEDS: *HR* HYDROcodone/Acet 10/325 mg TABLET PO PRN ×2 (06:22→14:07)
[2017-12-12 07:36] VITALS: BP 113/59
[2017-12-12] MEDS: Fenofibrate 54 MG TABLET PO SCH (08:17)
[2017-12-12] MEDS: Valsartan 160 MG TABLET PO SCH (08:17)
[2017-12-12] MEDS: Metoprolol XL (24 HR) Succ 50 MG TAB.ER.24H PO SCH (08:17)
[2017-12-12] MEDS: Aspirin Enteric Coated 81 MG Tablet PO SCH (08:17)
== END 2017-12-12 15:00 | disposition home or self-care (01) | DRG 561 ==
LOC: INPGRE 15:32

== ENCOUNTER 2019-08-22 14:33 | Inpatient (IN) ==
[2019-08-23] MEDS ORDERED: Sennosides 8.6 MG TABLET PO PRN (14:26)
[2019-08-23] MEDS ORDERED: clonazePAM 0.5 MG TABLET PO PRN (14:26)
[2019-08-24 05:11] LABS: Basophils % 0.8 %; Hematocrit 26.9 % (35.3-44.9); Hemoglobin 8.9 g/dL (11.5-15.4); Immature Granulocytes % 8.2 % (0-4); Lymphocytes # 0.2 K/mcL (0.6-4.6); Lymphocytes % 19.7 %; Mean Corpuscular HGB Conc 33.1 g/dL (31.6-35.5); Mean Corpuscular Hemoglobin 29.9 pg (28.0-33.3); Mean Corpuscular Volume 90.3 fL (83.0-100.0); Mean Platelet Volume 13.7 fL (9.4-12.4); Monocytes # 0.1 K/mcL (0.0-1.3); Monocytes % 9.8 %; Nucleated Red Blood Cells 13.1 /100 WBC (0); Red Blood Count 2.98 M/mcL (3.82-4.97); Red Cell Distribution Width 18.1 % (11.5-14.5); Segmented Neutrophils % 61.5 %; White Blood Count 1.2 K/mcL (4.3-11.1)
[2019-08-24 05:30] LABS: Alanine Aminotransferase 33 Units/L (7-52); Albumin 2.7 g/dL (3.5-5.7); Albumin/Globulin Ratio 2.1 (1.1-2.2); Alkaline Phosphatase 103 Units/L (34-104); Aspartate Amino Transferase 30 Units/L (13-39); BUN/Creatinine Ratio 30 (6-26); Bilirubin,Total 1.9 mg/dL (0.3-1.0); Blood Urea Nitrogen 16 mg/dL (8-23); Calcium 7.9 mg/dL (8.6-10.3); Carbon Dioxide 34 mEq/L (23-29); Chloride 89 mEq/L (98-107); Globulin 1.3 g/dL (2.4-3.5); Glucose 79 mg/dL (70-105); Osmolality,Calculated 268 (280-300); Potassium 3.3 mEq/L (3.5-5.1); Sodium 129 mEq/L (136-145); eGFR For African Americans > 60 (> 60); eGFR For Non-African Americans > 60 (> 60)
[2019-08-24 06:23] LABS: Neutrophils # 0.7 K/mcL (1.6-8.9)
[2019-08-24 06:25] LABS: Platelet Count 20 K/mcL (140-400)
[2019-08-24] MEDS: predniSONE 10 MG TABLET PO SCH (10:09)
[2019-08-24] MEDS: Furosemide 40 MG TABLET PO SCH (10:09)
[2019-08-24] MEDS: valACYclovir 500 MG TABLET PO SCH (10:09)
[2019-08-24] MEDS: Fluconazole 100 MG TABLET PO SCH (10:09)
[2019-08-24] MEDS: Fenofibrate 54 MG TABLET PO SCH (10:09)
[2019-08-24] MEDS: IMBRUVICA 420 MG PO SCH (11:03)
[2019-08-25] MEDS: Fenofibrate 54 MG TABLET PO SCH (09:20)
[2019-08-25] MEDS: predniSONE 10 MG TABLET PO SCH (09:20)
[2019-08-25] MEDS: Furosemide 40 MG TABLET PO SCH (09:20)
[2019-08-25] MEDS: Fluconazole 100 MG TABLET PO SCH (09:20)
[2019-08-25] MEDS: valACYclovir 500 MG TABLET PO SCH (09:20)
[2019-08-25] MEDS: IMBRUVICA 420 MG PO SCH (09:29)
[2019-08-25 10:18] LABS: Hemoglobin 10.3 g/dL (11.5-15.4); Immature Granulocytes % 6.8 % (0-4); Lymphocytes # 0.6 K/mcL (0.6-4.6); Lymphocytes % 28.8 %; Mean Corpuscular HGB Conc 33.2 g/dL (31.6-35.5); Mean Corpuscular Hemoglobin 30.2 pg (28.0-33.3); Mean Corpuscular Volume 90.9 fL (83.0-100.0); Monocytes # 0.2 K/mcL (0.0-1.3); Monocytes % 8.8 %; Neutrophils # 1.2 K/mcL (1.6-8.9); Nucleated Red Blood Cells 3.9 /100 WBC (0); Red Blood Count 3.41 M/mcL (3.82-4.97); Red Cell Distribution Width 18.6 % (11.5-14.5); Segmented Neutrophils % 54.6 %; White Blood Count 2.1 K/mcL (4.3-11.1)
[2019-08-25 10:20] LABS: Platelet Count 21 K/mcL (140-400)
[2019-08-25 10:35] LABS: BUN/Creatinine Ratio 24 (6-26); Blood Urea Nitrogen 18 mg/dL (8-23); Calcium 8.1 mg/dL (8.6-10.3); Carbon Dioxide 34 mEq/L (23-29); Chloride 85 mEq/L (98-107); Glucose 94 mg/dL (70-105); Osmolality,Calculated 266 (280-300); Sodium 127 mEq/L (136-145); eGFR For African Americans > 60 (> 60); eGFR For Non-African Americans > 60 (> 60)
[2019-08-26 05:49] LABS: BUN/Creatinine Ratio 39 (6-26); Blood Urea Nitrogen 20 mg/dL (8-23); Calcium 8.1 mg/dL (8.6-10.3); Carbon Dioxide 37 mEq/L (23-29); Chloride 89 mEq/L (98-107); Glucose 80 mg/dL (70-105); Osmolality,Calculated 272 (280-300); Potassium 3.5 mEq/L (3.5-5.1); Sodium 130 mEq/L (136-145); eGFR For African Americans > 60 (> 60); eGFR For Non-African Americans > 60 (> 60)
[2019-08-26 06:10] LABS: Basophils % 0.5 %; Hematocrit 28.1 % (35.3-44.9); Hemoglobin 9.5 g/dL (11.5-15.4); Immature Granulocytes % 6.9 % (0-4); Lymphocytes # 0.4 K/mcL (0.6-4.6); Lymphocytes % 21.7 %; Mean Corpuscular HGB Conc 33.8 g/dL (31.6-35.5); Mean Corpuscular Hemoglobin 30.4 pg (28.0-33.3); Mean Corpuscular Volume 89.8 fL (83.0-100.0); Monocytes # 0.2 K/mcL (0.0-1.3); Monocytes % 10.3 %; Neutrophils # 1.2 K/mcL (1.6-8.9); Nucleated Red Blood Cells 2.5 /100 WBC (0); Red Blood Count 3.13 M/mcL (3.82-4.97); Red Cell Distribution Width 18.6 % (11.5-14.5); Segmented Neutrophils % 60.6 %
[2019-08-26 06:12] LABS: Platelet Count 19 K/mcL (140-400)
[2019-08-26 06:14] LABS: Anisocytosis 1+ (Not Present); Macrocytosis Present (Not Present); Platelet Estimate Marked Decrease (Normal)
[2019-08-26] MEDS ORDERED: 0.9 % Sodium Chloride 250 ML IVC SCH (06:30)
[2019-08-26] MEDS: predniSONE 10 MG TABLET PO SCH (10:16)
[2019-08-26] MEDS: Furosemide 40 MG TABLET PO SCH (10:17)
[2019-08-26] MEDS: valACYclovir 500 MG TABLET PO SCH (10:17)
[2019-08-26] MEDS: Fluconazole 100 MG TABLET PO SCH (10:17)
[2019-08-26] MEDS: Fenofibrate 54 MG TABLET PO SCH (10:17)
[2019-08-26] MEDS: IMBRUVICA 420 MG PO SCH (10:19)
[2019-08-26 11:22] LABS: Bilirubin,Urine Negative (Negative); Blood,Urine Small (Negative); Clarity,Urine Clear (Clear); Color,Urine Yellow (Yellow); Glucose,Urine (UA) Normal (Normal); Ketones,Urine Negative (Negative); Leukocyte Esterase,Urine Trace (Negative); Nitrite,Urine Negative (Negative); Protein,Urine 30 mg/dL (Neg-Trace); Urobilinogen,Urine Normal (Normal)
[2019-08-26 11:25] LABS: Bacteria,Urine Few per hpf (None-Few); Squamous Epithelial Cell,Urine Few per lpf (None-Few); WBC,Urine 0-3 per hpf (0-3)
[2019-08-26] MEDS ORDERED: 0.9 % Sodium Chloride 500 ML IVC ONE (13:35)
[2019-08-26] MEDS ORDERED: 0.9 % Sodium Chloride 1,000 ML IVC SCH (13:45)
[2019-08-26] MEDS ORDERED: Morphine Sulfate Oral CONC 10 MG/0.5 ML ORAL.SYG SL PRN (15:24)
[2019-08-27 09:35] VITALS: BP 129/75
[2019-08-27] MEDS: Fluconazole 100 MG TABLET PO SCH (11:12)
[2019-08-27] MEDS: Fenofibrate 54 MG TABLET PO SCH (11:12)
[2019-08-27] MEDS: predniSONE 10 MG TABLET PO SCH (11:12)
[2019-08-27] MEDS: IMBRUVICA 420 MG PO SCH (11:12)
[2019-08-27] MEDS: valACYclovir 500 MG TABLET PO SCH (11:12)
== END 2019-08-27 13:03 | disposition hospice, home (50) | DRG 945 ==
LOC: INPGRE 08-23 13:33
PROVIDERS: ADMIT Family Medicine; ATTEND Family Medicine